=== PATIENT | male | born 1960 | race Caucasian/White ===

== ENCOUNTER 2017-01-20 23:42 | Emergency (ER) | payer OTHER ==
[~2017-01-20] VITALS: Ht 182.9 cm; Wt 59.9 kg
[~2017-01-20 23:42] MED LIST: ANAPROX DS550 MG PO; NORCO 5-325 TA1 EACH PO
[2017-04-12] MEDS ORDERED: DAY TIME COLD-237 ML PO (01:55)
[2017-04-12] MEDS ORDERED: TAMIFLU75 MG PO (03:02)
== END 2017-01-21 02:45 | disposition home or self-care (01) ==
LOC: ED 23:42
PROC: 0HQ1XZZ Repair Face Skin, External Approach (ICD-10-PCS; principal; 2017-01-20)
DX: S01.511A Laceration without foreign body of lip, initial encounter (principal); S00.83XA Contusion of other part of head, initial encounter; S00.03XA Contusion of scalp, initial encounter; S10.93XA Contusion of unspecified part of neck, initial encounter; Z87.891 Personal history of nicotine dependence; Y04.2XXA Assault by strike against or bumped into by another person, initial encounter; Y92.149 Unspecified place in prison as the place of occurrence of the external cause
CPT/HCPCS: 12011; 70160; 70498; 90471; 90715; 96372; 99284; J1885; Q9967

== ENCOUNTER → 2017-04-12 | Emergency (ER) | payer OTHER ==
[~2017-04-12] VITALS: Ht 182.9 cm; Wt 64.9 kg
[~2017-04-12] MED LIST changes: +DAY TIME COLD-237 ML PO; +TAMIFLU75 MG PO
== END ==
LOC: ED 01:40
DX: J10.1 Influenza due to other identified influenza virus with other respiratory manifestations (principal); F17.200 Nicotine dependence, unspecified, uncomplicated; Z79.899 Other long term (current) drug therapy
CPT/HCPCS: 87502; 99283

== ENCOUNTER 2018-09-04 13:30 | Emergency (ER) | payer OTHER ==
[~2018-09-04] VITALS: Ht 182.9 cm; Wt 54.9 kg
[2018-09-04] MEDS ORDERED: PENICILLIN V P500 MG PO (13:58)
== END 2018-09-04 14:06 | disposition home or self-care (01) ==
LOC: ED 13:30
DX: K04.7 Periapical abscess without sinus (principal); F17.200 Nicotine dependence, unspecified, uncomplicated
CPT/HCPCS: 99283